=== PATIENT | male | born 1955 | race Caucasian/White ===

== ENCOUNTER 2016-12-16 07:58 | Day surgery (SDC) | payer BC ==
[2016-12-13 11:29] VITALS: BMI 28.8
[~2016-12-16 07:58] MED LIST: LACTATED RINGERS 1,000 ML IV SCH; LIDOCAINE 1% 20 ML VIAL (10MG/ML) FOR IV START INTRADERMA PRN
[2016-12-16 08:20] VITALS: RESP 16; TEMP 96.9
[2016-12-16] MEDS ORDERED: LIDOCAINE 1% INJ 10MG/ML (20 ML MDV) ONE (08:57)
[2016-12-16] MEDS ORDERED: GLYCOPYRROLATE 0.2 MG/ML 2 ML VIAL ONE (08:57)
[2016-12-16] MEDS ORDERED: PROPOFOL 10 MG/ML 20 ML VIAL IV ONE (08:57)
--- NOTE | 2016-12-16 09:10 | P.PCN ---
Date of Procedure: 12/16/16 Procedure(s) Performed: BRIEF HISTORY: Patient is a 61-year-old pleasant white male scheduled for an elective colonoscopy as a part of evaluation of prior history of colon polyps. Last colonoscopy was 5 years ago. PROCEDURE PERFORMED: Colonoscopy. PREOPERATIVE DIAGNOSIS: History of colon polyps. IV sedation per Anesthesia. PROCEDURE: After informed consent was obtained, the patient, was brought into the endoscopy unit. IV conscious sedation was administered by Anesthesia under continuous monitoring. Still rectal examination was normal. Initially the Olympus CF-160 flexible video colonoscope was then inserted in the rectum, gradually advanced into the cecum without any difficulty. Careful examination was performed as the scope was gradually being withdrawn. Ileocecal valve and the appendiceal orifice were visualized and appeared normal. Prep was excellent. Mucosa of the cecum, ascending colon, transverse colon, descending colon, sigmoid colon, and rectum appeared normal. Retroflexion was performed in the rectum and no lesions were seen. The patient tolerated the procedure well. IMPRESSION: Normal-appearing colon from rectum to cecum with no evidence of colorectal neoplasia.. RECOMMENDATIONS: Findings of this examination were discussed with the patient as well as his family. He was advised to have a repeat surveillance colonoscopy in 5 years from now because of the prior history of colon polyps..
[2016-12-16 09:50] VITALS: BP 113/68; PULSE 55
== END 2016-12-16 10:09 | disposition home or self-care (01) ==
LOC: ORWHC2ENDO 07:58
PROVIDERS: ATTEND Internal Medicine Gastroenterology
DX: Z12.11 Encounter for screening for malignant neoplasm of colon (principal); I10 Essential (primary) hypertension; E78.5 Hyperlipidemia, unspecified; I25.10 Atherosclerotic heart disease of native coronary artery without angina pectoris; E07.9 Disorder of thyroid, unspecified; Z86.010 Personal history of colon polyps; Z88.5 Allergy status to narcotic agent; Z79.82 Long term (current) use of aspirin; Z79.899 Other long term (current) drug therapy
CPT/HCPCS: G0105; J2001; J2704; 99153

== ENCOUNTER 2022-06-07 08:11 | Day surgery (SDC) | payer BC, MEDICARE ==
[2022-06-06 08:45] VITALS: BMI 28.3
[~2022-06-07 08:11] MED LIST changes: +LIDOCAINE 1% (10MG/ML) FOR IV START INTRADERMA PRN; -LIDOCAINE 1% 20 ML VIAL (10MG/ML) FOR IV START INTRADERMA PRN
[2022-06-07 08:33] VITALS: RESP 16; TEMP 96.2
[2022-06-07] MEDS ORDERED: PROPOFOL 10 MG/ML 20 ML VIAL IV ONE (09:14)
--- NOTE | 2022-06-07 09:30 | P.PCN ---
Date of Procedure: 06/07/22 Procedure(s) Performed: BRIEF HISTORY: Patient is a 66-year-old pleasant white male scheduled for an elective colonoscopy as a part of screening for colorectal neoplasia. Family history of colon cancer diagnosed At Age 30. PROCEDURE PERFORMED: Colonoscopy. PREOPERATIVE DIAGNOSIS: Screening for colon cancer /family history of colon cancer IV sedation per Anesthesia. PROCEDURE: After informed consent was obtained, the patient, was brought into the endoscopy unit. IV sedation was administered by Anesthesia under continuous monitoring. Digital rectal examination was normal. Initially the Olympus CF-160 flexible video colonoscope was then inserted in the rectum, gradually advanced into the cecum without any difficulty. Careful examination was performed as the scope was gradually being withdrawn. Ileocecal valve and the appendiceal orifice were visualized and appeared normal. Prep was excellent. Mucosa of the cecum, ascending colon, transverse colon, descending colon, sigmoid colon, and rectum appeared normal. Retroflexion was performed in the rectum and no lesions were seen. The patient tolerated the procedure well. IMPRESSION: Normal-appearing colon from rectum to cecum with no evidence of colorectal neoplasia . RECOMMENDATIONS: Findings of this examination were discussed with the patient as well as his family. He was advised to have a repeat screening colonoscopy every 5 years..
[2022-06-07 09:58] VITALS: BP 131/80; PULSE 54
== END 2022-06-07 10:21 | disposition home or self-care (01) ==
LOC: ORWHC2ENDO 08:11
PROVIDERS: ATTEND Internal Medicine Gastroenterology
DX: Z12.11 Encounter for screening for malignant neoplasm of colon (principal); Z80.0 Family history of malignant neoplasm of digestive organs; I25.10 Atherosclerotic heart disease of native coronary artery without angina pectoris; I10 Essential (primary) hypertension; E78.5 Hyperlipidemia, unspecified; E07.9 Disorder of thyroid, unspecified; Z88.8 Allergy status to other drugs, medicaments and biological substances; Z79.890 Hormone replacement therapy; Z79.899 Other long term (current) drug therapy; Z82.49 Family history of ischemic heart disease and other diseases of the circulatory system
CPT/HCPCS: J2704; G0105

== ENCOUNTER 2024-09-19 19:52 | Outpatient (CLI) | payer MEDICARE, OTHER ==
--- NOTE | 2024-09-30 19:01 | P.PCN ---
Date of Procedure: 09/19/24 Operative Findings: Polysomnography report History This is a 69-year-old male patient with known history of obstructive sleep apnea. Based on the previous sleep study that was done back in 2018, the patient was diagnosed having mild to moderate obstructive sleep apnea with an AHI of 16. The patient is currently receiving APAP therapy and he has a DreamStation which is set at a pressure of 4/20 cm of water. He has demonstrated poor compliance and poor interest in continuing CPAP therapy. He has had difficulties in tolerating the treatment and achieving a good mask seal. We have tried to optimize his treatment by doing adjustments and modifications on his mask interface and CPAP pressure and the patient has failed. The patient is interested in alternatives. Pertinent physical findings The patient's weight is 187 pounds with a BMI of 26.8 Technical description The patient was studied using a standard complex polysomnography protocol that included recording of the Lead II EKG, Central, occipital and frontal EEG, right and left outer canthus EOG, submental EMG, right and left anterior tibialis EMG, respiratory airflow by thermocouple and or pressure/flow transducer, respiratory efforts by abdominal and thoracic PVDF belts, oxygen saturation by cable oximetry. Position by observation synchronized the PSG. Equipment used: [employer]. Sleep characteristics The total recording duration was 424.5 minutes. The total sleep time was 3 and 47.0 minutes. The overall sleep efficiency was 81.7%. Latency to sleep onset was 16.1 minutes. Latency to REM sleep was 51 minutes. The sleep architecture was characterized by 14.6% stage I, 69.3% stage II, 0% stage III and a total of 16.1% REM sleep. The wake after sleep onset time was 67 minutes. The total arousal index was 24. Respiratory analysis The patient had a total of 69 obstructive events of which 4 were obstructive apneas, 0 were mixed apneas and 65 were obstructive hypopneas. The resulting AHI was 18.3. The patient also encountered a total of 40 central apneas with an index of 6.9. Oxygenation analysis The baseline pulse ox was 94% while awake. Oxygen saturation dropped during sleep and the lowest pulse ox encounter was 83%. The patient spent a total 6 minutes of the sleep time below pulse ox of 89%. No significant desaturations were encountered. Periodic limb movement summary The patient had a total of 15 periodic limb movement activity with an index of 2.6. There was another 15 periodic limb movement activity with arousals with an index of 2.6 Cardiac summary Average heart rate was 49 with a minimum heart rate of 44 and the maximum heart rate 55 Arousal events The sleep continuity summary showed a total of 139 arousals with an index of 24. The respiratory arousal index was 8.0 Assessment Mild obstructive sleep apnea with an AHI of 18.3 with minimal nocturnal oxygen desaturations. Noted the patient has an adequate sleep architecture with some diminishment in delta wave sleep and REM sleep and overexpression of stage I sleep. The total arousal index was 24 and the respiratory arousal index was 8.0. Mild central sleep apnea with an AHI of 6.9 Coronary artery disease Hypertension Hypothyroidism Hyperlipidemia Snoring Body mass index of 26.8 Plan This patient's disease severity has remained unchanged over the past years. His original sleep study back in 2018 showed an AHI of 16 and the patient's current sleep study showing an AHI of 18.3 which is essentially in the moderately severe category. This patient has failed CPAP therapy in the past and the patient has no interest in pursuing CPAP treatment at this point. He is considering alternatives I am going to discuss the findings with the patient. Alternative treatments would include an oral appliance versus inspire device/hypoglossal nerve stimulation. I am in favor of offering the patient an oral appliance that should improve the severity of his obstructive sleep apnea. He needs to work on implementing good sleep hygiene measures. Maintain regular sleep schedule. Weight loss may be of benefit. Will continue to follow make further recommendations after having final discussion with the patient.
== END 2024-09-20 06:00 | disposition home or self-care (01) ==
LOC: 3 N SLEEP 19:52
PROVIDERS: ATTEND Internal Medicine Critical Care Medicine
DX: G47.33 Obstructive sleep apnea (adult) (pediatric) (principal); G47.36 Sleep related hypoventilation in conditions classified elsewhere; G47.52 REM sleep behavior disorder; I10 Essential (primary) hypertension; I25.10 Atherosclerotic heart disease of native coronary artery without angina pectoris; E03.9 Hypothyroidism, unspecified; E78.5 Hyperlipidemia, unspecified; Z68.26 Body mass index [BMI] 26.0-26.9, adult; Z88.8 Allergy status to other drugs, medicaments and biological substances
CPT/HCPCS: 95810